=== PATIENT | female | born 1995 | race Caucasian/White ===

== ENCOUNTER 2020-03-05 11:09 | Outpatient (RCR) | payer OTHER, SELFPAY ==
[2020-03-05 13:34] LABS: Hematocrit 34.5 % (37.0-47.0)
[2020-03-05 13:45] LABS: Glucose 1 Hour PP 50gm Dose 142 mg/dL
[2020-03-05 14:27] LABS: HIV 1/2 Ab P24 Ag Result Negative (Negative)
[2020-03-06 07:56] LABS: Rapid Plasma Reagin Non-Reactive (NonReactive)
== END 2020-06-03 23:59 | disposition home or self-care (01) ==
LOC: ANHLAB 11:09
PROVIDERS: PCP Internal Medicine; Visit Provider Advanced Practice Midwife
DX: Z29.13 Encounter for prophylactic Rho(D) immune globulin (principal); Z11.4 Encounter for screening for human immunodeficiency virus [HIV]; O36.0990 Maternal care for other rhesus isoimmunization, unspecified trimester, not applicable or unspecified; Z3A.00 Weeks of gestation of pregnancy not specified
CPT/HCPCS: 36415; 82947; 85014; 85018; 85461; 86592; 86703; 90384; G0432; J2790

== ENCOUNTER 2020-03-07 12:10 | Outpatient (RCR) | payer OTHER, SELFPAY ==
[2020-03-07] MEDS: RHO(D) IMMUNE GLOBULIN 300 MCG SYRINGE IM (13:16)
== END 2020-06-05 23:59 | disposition home or self-care (01) ==
LOC: ANHLAB 12:10
PROVIDERS: PCP Internal Medicine; Visit Provider Obstetrics & Gynecology
DX: Z29.13 Encounter for prophylactic Rho(D) immune globulin (principal); O36.0130 Maternal care for anti-D [Rh] antibodies, third trimester, not applicable or unspecified; Z3A.00 Weeks of gestation of pregnancy not specified
CPT/HCPCS: 96372

== ENCOUNTER 2020-04-15 10:55 | Observation (INO) | payer OTHER, SELFPAY ==
[2020-04-15 11:18] VITALS: BP 118/68; PULSE 99
[2020-04-15 11:30] VITALS: BP 110/92; PULSE 103
[2020-04-15 11:45] VITALS: BP 119/75; PULSE 95
[2020-04-15 12:32] VITALS: BP 119/75; PULSE 90
--- NOTE | 2020-04-15 16:11 | PC.NURSE ---
1610--Dr. Thorpe at BS to see pt. at this time.
--- NOTE | 2020-04-15 16:37 | P.CONGI_ITS ---
Assessment and Plan Assessment and plan (1) : Code(s): Z34.90 - Encounter for supervision of normal , unspecified, unspecified trimester Status: Acute Assessment and Plan: Patient 36 weeks currently followed by Dr. Whitlock. plan for colonoscopy after she delivers the baby in several months. (2) Ulcerative colitis: Code(s): K51.90 - Ulcerative colitis, unspecified, without complications Status: Acute Assessment and Plan: Patient gives a history of ulcerative colitis. It is uncertain the extent of this disease. Currently on no medications. Plan is to start mesalamine. Continue this to the remainder of her . If symptoms worsen then prednisone may be a added later. We will ask patient to follow up in the office in 2 weeks. Ultimately for GI endoscopy after delivery of her baby. CBC and coags will be obtained today. (3) Rectal bleeding: Code(s): K62.5 - Hemorrhage of anus and rectum Status: Acute GI Consult Note Consult date/time: 04/15/20 16:37 HPI: Vanessa Casillas is a 25 year old female Seen in evaluation at the request Dr. Whitlock. Patient current we 36 weeks . She was found to have ulcerative colitis diagnosed at age 15 or 16. She state on medications until she was 20 when she stopped these because she felt good in became somewhat independent. Over the last 2 weeks of her she has noted loose stools with blood in her stools this appears admixed as the stools them sill cells appear bloody. Patient denies any abdominal pain. She typically has 1 or 2 stools a day but sometimes will have a few more over the last several weeks. She denies abdominal pain. Her appetite has remained stable. She has had no recent investigation does not currently follow with bed setter. Previous records or at [facility]. Review of Systems Review of Systems: All systems reviewed & are unremarkable except as noted in HPI and below Meds Home Medications and Allergies Allergies Allergy/AdvReac Type Severity Reaction Status Date / Time No Known Allergies Allergy Unverified 04/21/16 13:01 Vital Signs Vital Signs - 24 hr 04/15/20 11:18 04/15/20 11:30 04/15/20 11:45 Pulse Rate 99 103 H 95 Blood Pressure 118/68 110/92 H 119/75 Blood Pressure [Right Arm] 11/02/20 12:32 Pulse Rate 90 Blood Pressure Blood Pressure [Right Arm] 119/75 Exam Narrative: Exam Narrative: Physical exam reveals her to be alert. Vital signs stable. She is anicteric. Lungs are clear. Heart without murmur. Abdomen is reveals a gravid uterus nontender no no other masses evident.
[2020-04-15 16:57] LABS: Basophils Percent Auto 0.3 % (0.2-1.2); Eosinophils Absolute Auto 0.3 K/mm3 (0-0.3); Hemoglobin 11.4 g/dL (12.0-15.0); Immature Granulocyte Absolute 0.08 K/mm3 (0.00-0.031); Immature Granulocyte Percent A 0.6 % (0-0.5); Lymphocytes Percent Auto 20.4 % (18.3-44.2); Mean Corpuscular HGB Conc 32.6 g/dl (32-36); Mean Corpuscular Hemoglobin 30.4 pg (26-34); Mean Corpuscular Volume 93.3 fl (80-100); Mean Platelet Volume 9.6 fl (7.4-10.4); Monocytes Absolute Auto 0.9 K/mm3 (0.1-0.6); Monocytes Percent Auto 6.9 % (2.6-8.5); Neutrophils Absolute Auto 8.9 K/mm3 (1.3-6.7); Neutrophils Percent Auto 69.8 % (45.5-73.1); Platelet Count Result 370 k/mm3 (150-375); Red Blood Count 3.75 M/mm3 (4.2-5.4); Red Cell Distribution Width 12.4 % (11.5-14.5); White Blood Count 12.7 K/mm3 (4.5-10.0)
[2020-04-15 16:58] VITALS: BP 128/72; PULSE 91; RESP 16; TEMP 37.4
[2020-04-15 17:07] LABS: INR 0.9; Prothrombin Time 12.2 Seconds (11.1-14.7)
[2020-04-15] MEDS: MESALAMINE 400 MG DELAYED RELEASE CAPSULE 800 MG PO (17:21)
[2020-04-15 17:26] VITALS: BMI 26.7
--- NOTE | 2020-04-15 17:46 | OBADM ---
This patient, Vanessa Casillas, admitted to the OB room OB Post 115 for observation. Patient/family oriented to hospital policies and general routines including ID bracelet, bed and alarms, visiting hours, pain management, procedures, bathroom and other care routines, personal items, smoking policy, room service/diet, and visiting hours. Patient/Family are encouraged to report perceived risks to care and to ask questions if they do not understand what they are told or what they should do.
--- NOTE | 2020-05-16 19:55 | PM.IMHP ---
H&P: HPI History of Present Illness Date/Time: 05/16/20 19:55 Chief complaint: vomiting,diarrhea Narrative: Vanessa Casillas is a 25 year old female, , who presents for Evaluation in the hospital of acute gastric intestinal symptoms. She is known to have ulcerative colitis. She is . She is in the early 3rd trimester. [facility] Past Medical History Medical History Ulcerative colitis Social History Social History (Updated 05/14/20 @ 01:12 by Wendi Richardson PA-C) Smoking status: Never smoker Second hand tobacco smoke exposure: No Alcohol intake: never Substance use: current Substance use type: marijuana Gender identity (if verbalized by the patient): Female Spiritual care concerns: No Meds Home Medications and Allergies Home Medications Medication Instructions Recorded Confirmed Type prenat.vits,anurag,olq-wjqu-iwwhx 1 tablet PO DAILY 04/15/20 05/08/20 History balsalazide 750 mg PO BID 05/08/20 05/08/20 History Allergies Allergy/AdvReac Type Severity Reaction Status Date / Time No Known Allergies Allergy Unverified 04/21/16 13:01 Assessment and Plan Assessment and plan (1) Ulcerative colitis: Code(s): K51.90 - Ulcerative colitis, unspecified, without complications Status: Acute (2) : Code(s): Z34.90 - Encounter for supervision of normal , unspecified, unspecified trimester Status: Acute Assessment and Plan: Patient was admitted for short-stay and was seen by Gastroenterology. Please see their consultation note for details. She had reassuring status. Her is stable.
== END 2020-04-15 18:11 | disposition home or self-care (01) ==
PROVIDERS: Internal Medicine Gastroenterology; Admitting Provider Obstetrics & Gynecology; PCP Internal Medicine; Visit Provider Obstetrics & Gynecology
DX: O99.613 Diseases of the digestive system complicating pregnancy, third trimester (principal); K51.90 Ulcerative colitis, unspecified, without complications; Z3A.36 36 weeks gestation of pregnancy; K62.5 Hemorrhage of anus and rectum
CPT/HCPCS: 36415; 59025; 85025; 85610; A9270; G0378; G0379

== ENCOUNTER 2020-05-08 16:51 | Inpatient (IN) | payer OTHER, SELFPAY ==
[2020-05-08] VITALS (9 sets, daily range): BP systolic 111–131; BP diastolic 59–85; PULSE 81–101; TEMP 36.3–36.6; BMI 26.9
[2020-05-08] MEDS: DINOPROSTONE 10 MG VAG INSERT VAGINAL (17:31)
[2020-05-08 17:34] LABS: Basophils Percent Auto 0.3 % (0.2-1.2); Eosinophils Absolute Auto 0.2 K/mm3 (0-0.3); Eosinophils Percent Auto 1.3 % (0-4.4); Hematocrit 31.5 % (37.0-47.0); Hemoglobin 10.4 g/dL (12.0-15.0); Immature Granulocyte Absolute 0.06 K/mm3 (0.00-0.031); Immature Granulocyte Percent A 0.5 % (0-0.5); Lymphocytes Absolute Auto 2.46 K/mm3 (0.9-3.2); Lymphocytes Percent Auto 20.1 % (18.3-44.2); Mean Corpuscular Hemoglobin 30.5 pg (26-34); Mean Corpuscular Volume 92.4 fl (80-100); Mean Platelet Volume 10.4 fl (7.4-10.4); Monocytes Absolute Auto 0.8 K/mm3 (0.1-0.6); Monocytes Percent Auto 6.5 % (2.6-8.5); Neutrophils Absolute Auto 8.7 K/mm3 (1.3-6.7); Neutrophils Percent Auto 71.3 % (45.5-73.1); Platelet Count Result 336 k/mm3 (150-375); Red Blood Count 3.41 M/mm3 (4.2-5.4); White Blood Count 12.3 K/mm3 (4.5-10.0)
--- NOTE | 2020-05-08 17:48 | LDADM ---
This patient, Vanessa Casillas, was admitted to Labor/Delivery/Recovery 108 on 05/08/20 at 16:51. Plans for labor, pain management and were discussed with patient. Patient/family oriented to hospital policies and general routines including ID bracelet, bed and alarms, visiting hours, pain management, procedures, bathroom and other care routines, personal items, smoking policy, room service/diet and guest tray routines, security routines, and visiting hours. Patient/Family are encouraged to report perceived risks to care and to ask questions if they do not understand what they are told or what they should do. See OBIX for further documentation.
--- NOTE | 2020-05-08 20:10 | PHAR ---
Home medication identified in pharmacy. Balsalazide 750mg capsule
[2020-05-08 21:40] LABS: Amphetamine Screen Urine Negative (Negative); Barbiturate Screen Urine Negative (Negative); Benzodiazepines Screen Urine Negative (Negative); Cannabinoid Screen Urine Positive (Negative); Cocaine Screen Urine Negative (Negative); Methadone Screen Urine Negative (Negative); Opiate Screen Urine Negative (Negative); Phencyclidine Screen Urine Negative (Negative)
--- NOTE | 2020-05-08 22:29 | WPDANESEPP ---
Anes - Eval Pre Procedure Procedure: Labor epidural Date/Time: 05/08/20 22:29 Surgeon: Kamlesh Preop Diagnosis: Abd pain with contractions Pre Op Diagnosis: iol Patient Data Age: 25 Gender: F Height: 5 ft 7 in Weight: 78 kg Last Vital Signs Temp 97.4 F L 05/08/20 19:43 Pulse 87 05/08/20 19:30 BP 113/60 05/08/20 19:30 Allergies Allergy/AdvReac Type Severity Reaction Status Date / Time No Known Allergies Allergy Unverified 04/21/16 13:01 Home Medications Medication Instructions Recorded Confirmed Type prenat.vits,anurag,czc-yhdo-mtiib 1 tablet PO DAILY 04/15/20 05/08/20 History balsalazide 750 mg PO BID 05/08/20 05/08/20 History Laboratory Tests 05/08/20 05/08/20 05/08/20 17:27 17:27 17:27 WBC 12.3 K/mm3 H K/mm3 (4.5-10.0) RBC 3.41 M/mm3 L M/mm3 (4.2-5.4) Hgb 10.4 g/dL L g/dL (12.0-15.0) Hct 31.5 % L % (37.0-47.0) MCV 92.4 fl fl (80-100) MCH 30.5 pg pg (26-34) MCHC 33.0 g/dl g/dl (32-36) RDW 13.0 % % (11.5-14.5) Plt Count 336 k/mm3 k/mm3 (150-375) MPV 10.4 fl fl (7.4-10.4) Immature Gran % (Auto) 0.5 % % (0-0.5) Neut % (Auto) 71.3 % % (45.5-73.1) Lymph % (Auto) 20.1 % % (18.3-44.2) Wilcox % (Auto) 6.5 % % (2.6-8.5) Eos % (Auto) 1.3 % % (0-4.4) Baso % (Auto) 0.3 % % (0.2-1.2) Lymph # (Auto) 2.46 K/mm3 K/mm3 (0.9-3.2) Wilcox # (Auto) 0.8 K/mm3 H K/mm3 (0.1-0.6) Eos # (Auto) 0.2 K/mm3 K/mm3 (0-0.3) Baso # (Auto) 0.0 K/mm3 K/mm3 (0.0-0.1) Abs Immat Gran (auto) 0.06 K/mm3 H K/mm3 (0.00-0.031) Absolute Neuts (auto) 8.7 K/mm3 H K/mm3 (1.3-6.7) Absolute Nucleated RBC 0.0 K/mm3 K/mm3 (0.0-0.012) Nucleated RBC % 0.0 % % (0.0-0.2) Urine Opiates Screen Urine Methadone Screen Ur Barbiturates Screen Ur Phencyclidine Scrn Ur Amphetamine Screen U Benzodiazepines Scrn Urine Cocaine Screen U Cannabinoids Screen RPR Pending Blood Type O Negative Antibody Screen Positive Antibody Identification Passive Due to RH Imm Glob Antigen Identification TNP EDUARDO, IgG Interpret Not Performed EDUARDO, Poly Interpret Negative EDUARDO, Complement Interp Not Performed 05/08/20 21:18 WBC RBC Hgb Hct MCV MCH MCHC RDW Plt Count MPV Immature Gran % (Auto) Neut % (Auto) Lymph % (Auto) Wilcox % (Auto) Eos % (Auto) Baso % (Auto) Lymph # (Auto) Wilcox # (Auto) Eos # (Auto) Baso # (Auto) Abs Immat Gran (auto) Absolute Neuts (auto) Absolute Nucleated RBC Nucleated RBC % Urine Opiates Screen Negative (Negative) Urine Methadone Screen Negative (Negative) Ur Barbiturates Screen Negative (Negative) Ur Phencyclidine Scrn Negative (Negative) Ur Amphetamine Screen Negative (Negative) U Benzodiazepines Scrn Negative (Negative) Urine Cocaine Screen Negative (Negative) U Cannabinoids Screen Positive A (Negative) RPR Blood Type Antibody Screen Antibody Identification Antigen Identification EDUARDO, IgG Interpret EDUARDO, Poly Interpret EDUARDO, Complement Interp Patient hx anesthesia problems: none Family hx anesthesia problems: none PMFSH Past Medical History Medical History (Updated 05/08/20 @ 22:30 by Jovani Naranjo CRNA) Ulcerative colitis Social History Social History Smoking status: Never smoker Second hand tobacco smoke exposure: No Substance use: current
[2020-05-09] VITALS (198 sets, daily range): BP systolic 72–151; BP diastolic 43–96; PULSE 58–211; RESP 16; TEMP 36.5–37.2; O2SAT 86–100
[2020-05-09] MEDS: miSOPROStol 25 MCG TABLET VAGINAL ×2 (06:36→10:32)
--- NOTE | 2020-05-09 10:02 | WPDOBADMIT ---
Obstetrics - Admit Note Admission Note: record reviewed. No pertinent additions to the history and/or any subsequent changes in the physical findings that are not consistent with the expected course of the were found. MIL for hx of IUGR(resolved) but with recent ulcerative colitis flare, MFM rec delivery within 39th week. GSB negative Additions to the history and/or subsequent changes in the physical findings follow. None.
[2020-05-09] MEDS: LACTATED RINGERS 1,000 ML 125 ML IV CONT ×3 (14:34→21:52)
[2020-05-09] MEDS: fentaNYL CITRATE INJ (*CRX) 100 MCG/2 ML VIAL 50 MCG IV PUSH (14:34)
[2020-05-09] MEDS: OXYTOCIN 30 UNITS/NS 500 ML 30 UNITS/500 ML BAG 6 UNITS IV CONT (14:34)
--- NOTE | 2020-05-09 14:46 | PM.OBPNLAB ---
Pain Control Date/time seen: 05/09/20 14:46SVE 1-2/80/-1, AROM moderate amount of clear odorless fluid
[2020-05-10] VITALS (13 sets, daily range): BP systolic 109–137; BP diastolic 62–90; PULSE 76–114; RESP 16–18; TEMP 36.8–37.2; O2SAT 99
--- NOTE | 2020-05-10 00:09 | PM.OBPRVD ---
OB - Delivery Note Procedure Delivery date: 05/09/20 Procedure: Vaginal delivery events: Labor Induction Intrapartal events: None Induction method: AROM, per misoprostol protocol, per pitocin protocol and per cervidil protocol Delivery monitor: external FHT and internal uterine Route of delivery: Episiotomy description: None Laceration Description: Labial Delivery repair: vicryl Specimen: Yes Quantitative Blood Loss: 155 Anesthesia type: Epidural Disposition: other () Walker Baby Date of : 05/09/20 Time of : 23:43 Weeks of gestation at delivery: 39 Infant gender: Female Weight (pounds): 5 Weight (ounces): 14 presentation: vertex position: Left Occiput Anterior Placenta delivery description: Spontaneous cord vessel description: 3 Vessels and Clamped/Cut score one minute: 8 score five minutes: 9 Narrative: Compound presentation. Baby to warmer for further evaluation. Skin to skin in stable condition.
[2020-05-10] MEDS: OXYTOCIN 30 UNITS/NS 500 ML 30 UNITS/500 ML BAG 125 UNITS IV CONT (00:31)
[2020-05-10] MEDS: IBUPROFEN 600 MG TABLET PO ×4 (01:34→19:32)
[2020-05-10] MEDS: BENZOCAINE 20% AER SPR (*SP) 56 GM CAN 1 SPRAY TOPICAL (01:35)
[2020-05-10] MEDS: WITCH HAZEL 40 PADS 1 PAD TOPICAL (01:35)
--- NOTE | 2020-05-10 02:25 | OBPPTRN ---
Patient transferred to post room #282 via WC. Support person present. Oriented to unit, room, information board, rooming in, admission packet and security measures. Patient verbalizes understanding. Infant accompanied mother to room 282 per crib.
[2020-05-10 04:46] LABS: Hematocrit 31.7 % (37.0-47.0); Hemoglobin 10.4 g/dL (12.0-15.0)
[2020-05-10] MEDS: DOCUSATE SODIUM 100 MG CAPSULE PO (07:39)
[2020-05-10 09:00] LABS: Rapid Plasma Reagin Non-Reactive (NonReactive)
--- NOTE | 2020-05-10 09:05 | PM.OBPNVD ---
OB - PN: Subj Subjective Date/time seen: 05/10/20 09:05 Patient comments: no complaints, pain well controlled, incisional pain, tolerating diet and flatus present OB - PN: Obj Data Labs CBC & Chem 7: 05/10/20 03:47 Labs: Laboratory Results - last 24 hr 05/08/20 05/10/20 17:27 03:47 Hgb 10.4 L Hct 31.7 L RPR Non-reactive OB - PN A/P Plan day: 1 Plan: routine care Comments: No problems, routine care Time Spent With Patient Time: Total time spent is greater than 50% in coordination of care (as documented) at patient's floor/unit and/or counseling patient: Exam Const: General: comfortable, no acute distress and alert Resp: Effort & Inspection: normal respiratory effort Auscultation: no crackles, no rales and no rhonchi Cardio: Rate: regular rate Heart sounds: no click, no murmurs and no rubs GI: Inspection: non-distended GI Palp: No Tenderness to palpation present (GI) Auscultation: normal bowel sounds Other: Incision - CDI Extrem: General: normal to inspection, no pedal edema and no calf tenderness
--- NOTE | 2020-05-10 09:15 | WPDANLDPN2 ---
Anes-Prog Note L&D Date/Time: 05/10/20 09:15 Comfortable throughout: labor and delivery Neuraxial method: epidural Epidural/Spinal procedure site: clean & non-tender Neuro status: Neuro function grossly intact. Cardiovascular status: normal Respiratory status: normal Airway patency: baseline Mental status: baseline Post-Op hydration status: normal Vital Signs: Last Vital Signs Temp 37.2 C 05/10/20 07:00 Pulse 84 05/10/20 07:00 Resp 16 05/10/20 07:00 BP 122/90 05/10/20 07:00 Pulse Ox 100 05/09/20 23:26 Pain score (VAS): 3 I/O: Intake & Output 05/09/20 05/10/20 05/10/20 23:59 07:59 15:59 Intake Total 1000 500 Balance 1000 500 Post-procedural complaints: none Patient feedback: Patient satisfied with anesthetic care.
--- NOTE | 2020-05-10 12:10 | PCCCNOTE ---
Care Coordination. Patient referred to Care Coordination for positive UDS for THC. Pt. reports she only used to have more of an appetite. Pt. plans to return home with FOB. She reports having all necessary baby care items. She is setup with WIC, SNAP, and unemployment. She says her mother will be helping and coming by as well. Spoke with Unique Holcomb at [facility] Hotline and she took patient's situation as information only (Intake ID#[id number]). Pt. denies any needs for substance abuse or community resource information.
[2020-05-10] MEDS: ACETAMINOPHEN 325 MG TABLET 650 MG PO ×2 (13:28→19:33)
[2020-05-10] MEDS: TETANUS,DIPHTHERIA,AC PERTUSSIS ADULT (0.5 ML) BOOSTRIX IM (13:36)
[2020-05-10 17:04] LABS: SARS-CoV-2 RNA PCR Negative
--- NOTE | 2020-05-10 18:02 | PC.NURSE ---
1730 Pt and FOB advised of negative Covid result. Isolation discontinued.
[2020-05-11] MEDS: IBUPROFEN 600 MG TABLET PO ×3 (01:40→13:51)
[2020-05-11] MEDS: ACETAMINOPHEN 325 MG TABLET 650 MG PO ×3 (01:41→13:49)
[2020-05-11] MEDS: DOCUSATE SODIUM 100 MG CAPSULE PO (08:06)
--- NOTE | 2020-05-11 08:51 | PM.OBPNVD ---
OB - PN: Subj Subjective Date/time seen: 05/11/20 08:51 Patient comments: no complaints baby status: doing well and other (under bili lights) OB - PN: Obj Data Labs CBC & Chem 7: 05/10/20 03:47 Labs: Laboratory Results - last 24 hr 05/08/20 05/10/20 17:27 01:03 RPR Non-reactive SARS-CoV-2 RNA (RT-PCR) Negative OB - PN A/P Plan day: 2 Plan: routine care and discharge home Comments: no care bed Time Spent With Patient Time: Total time spent is greater than 50% in coordination of care (as documented) at patient's floor/unit and/or counseling patient: Review of Systems Review of Systems: All systems reviewed & are unremarkable except as noted in HPI and below Exam Const: General: cooperative and anxious Limitations: no limitations Psych: Attitude: cooperative
--- NOTE | 2020-05-11 08:53 | P.DS_ITS ---
DS: Admitting Diagnosis Admitting Diagnosis Admitting Diagnosis: iol OB - DS: Summary OB Procedures : None OB Procedures Intrapartum: Spontaneous Vag Delivery OB Procedures: : None Time Spent with Patient Time attestation: Total time spent providing and/or coordinating discharge services: DS: Data Data Completed and Pending Pending studies at discharge: Pending at discharge 05/09/20 23:50 Surgical [PTH] Routine Labs on day of discharge: Labs from last 24 hours 05/10/20 05/08/20 01:03 17:27 RPR Non-reactive SARS-CoV-2 RNA (RT-PCR) Negative Discharge Plan Discharge Attending physician on discharge: Mindy Whitlock Discharging Clinician: Poly Marino Patient Disposition: Home, Self-Care Activity: pelvic rest Diet: regular Patient Instructions: Antibiotic Form Stand Alone Forms: General Discharge Information Follow-up/Referrals: Poly Marino, CNM [Certified Nurse Sensitized Paper Tester] - 4 Weeks Discharge Medications: Continued prenat.vits,anurag,nze-eejk-ioszx Tablet 1 tablet PO DAILY RF: 0 balsalazide 750 mg capsule 750 mg PO BID RF: 0 Date of admission: 05/08/20 16:51 Primary Care Provider: Viktor Cheung Admitting Provider: Mindy Whitlock Attending physician on admission: Mindy Whitlock Condition: Stable
[2020-05-11] MEDS: CYCLOBENZAPRINE HCL 10 MG TABLET PO (11:12)
[2020-05-11 12:05] VITALS: BP 121/79; PULSE 75; RESP 16; TEMP 36.7; O2SAT 99
[2020-05-14 07:52] VITALS: BP 125/73; PULSE 83; RESP 20; TEMP 36.4; O2SAT 100
== END 2020-05-11 16:21 | disposition home or self-care (01) | DRG 560 ==
LOC: ANHLDR 17:01 → ANHOB2 05-10 04:22
PROVIDERS: Advanced Practice Midwife; Obstetrics & Gynecology; Admitting Provider Obstetrics & Gynecology; PCP Internal Medicine; Visit Provider Obstetrics & Gynecology
DX: O99.62 Diseases of the digestive system complicating childbirth (principal); Z20.828 Contact with and (suspected) exposure to other viral communicable diseases; K51.90 Ulcerative colitis, unspecified, without complications; O76 Abnormality in fetal heart rate and rhythm complicating labor and delivery; O70.0 First degree perineal laceration during delivery; Z3A.39 39 weeks gestation of pregnancy; Z37.0 Single live birth; Z23 Encounter for immunization
CPT/HCPCS: 36415; 80307; 85014; 85018; 85025; 86592; 86850; 86880; 86900; 86901; 86902; 87635; 88307; 90471; 90653; 90715; A9270; C9803; G0008; J2590; J2795; J3010; J7120; U0003

== ENCOUNTER 2020-05-14 00:31 | Emergency (ER) | payer OTHER, SELFPAY ==
[2020-05-14 00:37] VITALS: BP 138/93; PULSE 87; RESP 16; TEMP 36.6; O2SAT 99
--- NOTE | 2020-05-14 00:41 | ED.GENADULT ---
HPI - General Adult General Chief complaint: Headache Stated complaint: headache Time Seen by Provider: 05/14/20 00:35 Source: patient Mode of arrival: ambulatory Limitations: no limitations History of Present Illness HPI narrative: 25-year-old female that presents to the ER 4 days with complaint of headache since discharge on the . She has been treating herself at home with muscle relaxants and Tylenol with no relief. She is normotensive here and had no history of preeclampsia in her . She did have an epidural that required 2 attempts. She denies any other symptoms besides headache and neck pain that is worse when she stands up or sits up. No fever, no visual changes, no vomitin.g Onset (ago): day(s) Severity scale (1-10): 8 (when standing, less when laying flat) Quality: aching Pain Consistency: constant Associated symptoms: denies other symptoms Treatments prior to arrival: NSAID Related Data Home Medications Medication Instructions Recorded Confirmed prenat.vits,anurag,xfg-gmow-rtiip 1 tablet PO DAILY 04/15/20 05/08/20 balsalazide 750 mg PO BID 05/08/20 05/08/20 Allergies Allergy/AdvReac Type Severity Reaction Status Date / Time No Known Allergies Allergy Unverified 04/21/16 13:01 Review of Systems Review of Systems: All systems reviewed & are unremarkable except as noted in HPI and below PMFSH Past Medical History Medical History Ulcerative colitis Social History Social History (Updated 05/14/20 @ 01:12 by Wendi Richardson PA-C) Smoking status: Never smoker Second hand tobacco smoke exposure: No Alcohol intake: never Substance use: current Substance use type: marijuana Gender identity (if verbalized by the patient): Female Spiritual care concerns: No Exam Const: General: no acute distress and alert Orientation/consciousness: patient oriented x3 HENMT: Head: normal to inspection Eyes: Conjunctivae: conjunctivae normal Pupils: Equal, round and reactive pupils present Neck: Neck: no lymphadenopathy Resp: Effort & Inspection: normal respiratory effort Auscultation: clear to auscultation bilaterally Cardio: Rate: regular rate Rhythm: regular rhythm Back/Spine/Pelvis: Cervical Spine: cervical ROM normal Skin: General skin exam: normal color Neuro: General: moves all extremities Extrem: General: normal to inspection Course Course Emergency Course: Spoke with Dr. Cordero from OB anesthesia, agrees that patient most likely needs a blood patch. In mean time will hydrate and treat with Fioricet. He will be over to assess. Blood patch completed at 0130, per anesthesia pt needs to remain flat on back for a minimum of 1 hr, ideally 2 hrs. pt did get some immediate relief. 45 min post procedure pt is feeling much better. Medical Decision Making Differential Diagnosis Differential Diagnosis: post-epidural headache vs hypertension vs. sinus congestion Medical Records Medical records reviewed: Yes I reviewed the patient's medical records. Medical records narrative: No history of pre-e. Epidural X 2 attempts. Discharge Plan Discharge Clinical Impression: Spinal headache complicating labor and delivery, delivered, Patient Disposition: Home, Self-Care Condition: Improved Instructions: Antibiotic Form, Epidural Blood Patch (DC) Additional Instructions: No heavy lifting, he can lift nothing heavier than your baby for the next several days. Continue to take Tylenol or ibuprofen as needed for headache. Follow-up with your OB as scheduled, sooner should your headache return. Prescriptions: No Action prenat.vits,anurag,jxl-pkpz-kyzky Tablet 1 tablet PO DAILY RF: 0 balsalazide 750 mg capsule 750 mg PO BID RF: 0 Follow-up/Referrals: Wendi Richardson PA-C [Emergency Midlevel Provider] - Mindy Whitlock MD [Physician] - Viktor Cheung, [Primary Care
[2020-05-14 00:50] VITALS: BP 154/75; PULSE 80; RESP 23; TEMP 37.2; O2SAT 98
[2020-05-14] MEDS: SODIUM CHLORIDE 0.9% IV 1,000 ML 999 ML IV CONT (01:34)
--- NOTE | 2020-05-14 01:43 | P.PCNANE_ITS ---
Anes - Epidural Blood Patch PN Date/Time: 05/14/20 01:43 Consent: I have discussed with the patient/family/POA, the rationale of a lumbar epidural autologous blood patch for the treatment of post-dural puncture headache (spinal headache), including associated potential risks, benefits, comp lications and side effects. I have also discussed more conservative treatment options such as intravenous hydration, caffeine and non-prescription analgesics. The patient/family/POA, understand(s) and wish(es) to proceed with epidural autologous blood patch as treatment for the patient's post-dural puncture headache. Time-Out: A pre-procedural Time-Out was completed immediately before starting the procedure and confirmed: Patient Identification, Site, Procedure, Patient Position and the Availability of Requisite Equipment. Clinical Indications: PDPH Epidural Insertion Note Patient position: sitting Skin prep: chlorhexidine and sterile drape Needle: 18 gauge Tuohy-Schliff Technique: loss of resistance Skin anesthesia: lidocaine 1% Observations: tolerated well Complications: none
--- NOTE | 2020-05-14 02:40 | PC.NURSE ---
RN assisted anesthesia with blood patch. Pt tolerated well. See MD notes.
[2020-05-14 03:05] VITALS: BP 156/98; PULSE 89; RESP 16; TEMP 36.6; O2SAT 100
--- NOTE | 2020-05-14 03:18 | PC.NURSE ---
Pt assisted out of bed and noted no headache. Pt ambulated well without return of symptoms. VSS on d/c
== END 2020-05-14 03:19 | disposition home or self-care (01) ==
PROVIDERS: Emergency Provider Emergency Medicine; PCP Internal Medicine
DX: O89.4 Spinal and epidural anesthesia-induced headache during the puerperium (principal)
CPT/HCPCS: 62273; 96360; 99283; A9270; J7030

== ENCOUNTER 2024-03-12 09:35 | Outpatient (RCR) | payer BC, SELFPAY ==
[2024-03-12] VITALS (11 sets, daily range): BP systolic 107–127; BP diastolic 48–65; PULSE 82–94; RESP 14–18; TEMP 36.4–37.2; O2SAT 98–100
[2024-03-12 10:03] LABS: Basophils Absolute Auto 0.1 K/mm3 (0.0-0.1); Basophils Percent Auto 0.4 % (0.2-1.2); Eosinophils Absolute Auto 0.2 K/mm3 (0-0.3); Eosinophils Percent Auto 1.3 % (0-4.4); Hematocrit 24.3 % (37.0-47.0); Immature Granulocyte Absolute 0.07 K/mm3 (0.00-0.031); Immature Granulocyte Percent A 0.4 % (0-0.5); Lymphocytes Absolute Auto 2.62 K/mm3 (0.9-3.2); Lymphocytes Percent Auto 16.6 % (18.3-44.2); Mean Corpuscular HGB Conc 26.7 g/dl (32-36); Mean Corpuscular Hemoglobin 18.7 pg (26-34); Mean Corpuscular Volume 69.8 fl (80-100); Mean Platelet Volume 9.3 fl (7.4-10.4); Monocytes Absolute Auto 0.7 K/mm3 (0.1-0.6); Monocytes Percent Auto 4.6 % (2.6-8.5); Neutrophils Absolute Auto 12.1 K/mm3 (1.3-6.7); Neutrophils Percent Auto 76.7 % (45.5-73.1); Nucleated Red Blood Cells Perc 0.4 % (0.0-0.2); Platelet Count Result 655 k/mm3 (150-375); Red Blood Count 3.48 M/mm3 (4.2-5.4); Red Cell Distribution Width 19.1 % (11.5-14.5); White Blood Count 15.8 K/mm3 (4.5-10.0)
[2024-03-12 10:13] LABS: Hemoglobin 6.5 g/dL (12.0-15.0)
--- NOTE | 2024-03-12 10:20 | PC.NURSE ---
Lab results reported to Dr. Whitlock
[2024-03-12 10:27] LABS: Anisocytosis 1+; Hypochromasia 2+; Microcytosis 1+ (NORMAL); Platelet Estimate Increased (Adequate); Schistocytes None Seen; Target Cells 1+
== END 2024-06-10 23:59 | disposition home or self-care (01) ==
LOC: ANHOBOP 09:35
PROVIDERS: Visit Provider Advanced Practice Midwife
DX: O99.019 Anemia complicating pregnancy, unspecified trimester (principal)
CPT/HCPCS: 36415; 36430; 85025; 86850; 86900; 86901; 86923; P9016

== ENCOUNTER 2024-04-18 11:51 | Outpatient (RCR) | payer BC, MEDICAID, SELFPAY ==
[2024-04-19] MEDS: RHO(D) IMMUNE GLOBULIN 300 MCG/2 ML SYRINGE IM (10:14)
== END 2024-07-17 23:59 | disposition home or self-care (01) ==
LOC: ANHLAB 11:51
PROVIDERS: Visit Provider Advanced Practice Midwife
DX: Z29.13 Encounter for prophylactic Rho(D) immune globulin (principal); O36.0130 Maternal care for anti-D [Rh] antibodies, third trimester, not applicable or unspecified
CPT/HCPCS: 36415; 85461; 86850; 86900; 86901; 90384; J2790

== ENCOUNTER 2024-06-02 12:38 | Outpatient (CLI) | payer MEDICAID, SELFPAY ==
[2024-06-02 12:55] LABS: Basophils Absolute Auto 0.1 K/mm3 (0.0-0.1); Basophils Percent Auto 0.5 % (0.2-1.2); Eosinophils Absolute Auto 0.3 K/mm3 (0-0.3); Eosinophils Percent Auto 2.8 % (0-4.4); Hematocrit 30.2 % (37.0-47.0); Hemoglobin 9.1 g/dL (12.0-15.0); Immature Granulocyte Absolute 0.05 K/mm3 (0.00-0.031); Immature Granulocyte Percent A 0.4 % (0-0.5); Lymphocytes Absolute Auto 2.73 K/mm3 (0.9-3.2); Lymphocytes Percent Auto 23.6 % (18.3-44.2); Mean Corpuscular HGB Conc 30.1 g/dl (32-36); Mean Corpuscular Hemoglobin 24.9 pg (26-34); Mean Corpuscular Volume 82.5 fl (80-100); Mean Platelet Volume 10.1 fl (7.4-10.4); Monocytes Absolute Auto 0.7 K/mm3 (0.1-0.6); Monocytes Percent Auto 6.3 % (2.6-8.5); Neutrophils Absolute Auto 7.7 K/mm3 (1.3-6.7); Neutrophils Percent Auto 66.4 % (45.5-73.1); Platelet Count Result 425 k/mm3 (150-375); Red Blood Count 3.66 M/mm3 (4.2-5.4); Red Cell Distribution Width 26.4 % (11.5-14.5); White Blood Count 11.6 K/mm3 (4.5-10.0)
[2024-06-02 13:23] LABS: Acanthocytes 1+; Anisocytosis 2+; Burr Cells 1+; Hypochromasia 1+; Ovalocytes 1+; Platelet Estimate Increased (Adequate); Poikilocytosis 1+; Schistocytes None Seen; Stomatocytes 1+; Target Cells 1+; Tear Drop Cells 1+
== END 2024-06-02 12:39 | disposition home or self-care (01) ==
LOC: ANHLAB 12:42
PROVIDERS: Visit Provider Advanced Practice Midwife
DX: O99.019 Anemia complicating pregnancy, unspecified trimester (principal); Z3A.00 Weeks of gestation of pregnancy not specified
CPT/HCPCS: 36415; 85025

== ENCOUNTER 2024-06-08 14:00 | Inpatient (IN) | payer MEDICAID, SELFPAY ==
[2024-06-08] VITALS (60 sets, daily range): BP systolic 94–167; BP diastolic 49–124; PULSE 63–252; RESP 18; TEMP 36.4–36.8; O2SAT 94–100; BMI 30.2
--- NOTE | 2024-06-08 14:37 | LDADM ---
This patient, Vanessa Casillas, was admitted to Labor/Delivery/Recovery 105 on 06/08/24 at 14:01. Plans for labor, pain management and were discussed with patient. Patient/family oriented to hospital policies and general routines including ID bracelet, bed and alarms, visiting hours, pain management, procedures, bathroom and other care routines, personal items, smoking policy, room service/diet and guest tray routines, security routines, and visiting hours. Patient/Family are encouraged to report perceived risks to care and to ask questions if they do not understand what they are told or what they should do. See OBIX for further documentation.
[2024-06-08 14:46] LABS: Basophils Absolute Auto 0.1 K/mm3 (0.0-0.1); Basophils Percent Auto 0.5 % (0.2-1.2); Eosinophils Absolute Auto 0.3 K/mm3 (0-0.3); Hematocrit 29.9 % (37.0-47.0); Hemoglobin 9.1 g/dL (12.0-15.0); Immature Granulocyte Percent A 0.8 % (0-0.5); Lymphocytes Absolute Auto 2.47 K/mm3 (0.9-3.2); Lymphocytes Percent Auto 19.6 % (18.3-44.2); Mean Corpuscular HGB Conc 30.4 g/dl (32-36); Mean Corpuscular Hemoglobin 25.2 pg (26-34); Mean Corpuscular Volume 82.8 fl (80-100); Mean Platelet Volume 10.4 fl (7.4-10.4); Monocytes Absolute Auto 0.6 K/mm3 (0.1-0.6); Monocytes Percent Auto 4.4 % (2.6-8.5); Neutrophils Absolute Auto 9.2 K/mm3 (1.3-6.7); Neutrophils Percent Auto 72.7 % (45.5-73.1); Platelet Count Result 437 k/mm3 (150-375); Red Blood Count 3.61 M/mm3 (4.2-5.4); Red Cell Distribution Width 25.1 % (11.5-14.5); White Blood Count 12.6 K/mm3 (4.5-10.0)
[2024-06-08 15:02] LABS: Anisocytosis 1+; Hypochromasia 1+; Platelet Estimate Increased (Adequate); Schistocytes None Seen
[2024-06-08] MEDS: LACTATED RINGERS 500 ML 999 ML IV CONT (15:13)
[2024-06-08 15:22] LABS: Rapid Plasma Reagin Non-Reactive (NonReactive)
--- NOTE | 2024-06-08 15:49 | WPDOBADMIT ---
Obstetrics - Admit Note Admission Note: record reviewed. No pertinent additions to the history and/or any subsequent changes in the physical findings that are not consistent with the expected course of the were found. Additions to the history and/or subsequent changes in the physical findings follow. Admit in labor, SVE /-1 AROM clear, odorless fluid, anticipate vaginal delivery
[2024-06-08] MEDS: ONDANSETRON INJ 4 MG/2 ML VIAL IV PUSH (16:27)
--- NOTE | 2024-06-08 16:31 | P.PNAN_ITS ---
Anes - Initial Pre Proc Eval Procedure: labor epidural Date/Time: 06/08/24 16:31 Surgeon: Hugh Whitlock MD Pre Op Diagnosis: labor pain Pre Op Diagnosis: Contractions Patient Data Age: 29 Gender: F Height: Weight: Last Vital Signs Temp 36.4 C 06/08/24 15:41 Pulse 87 06/08/24 16:27 BP 100/89 06/08/24 16:29 Pulse Ox 100 06/08/24 16:27 Allergies Allergy/AdvReac Type Severity Reaction Status Date / Time No Known Allergies Allergy Verified 05/17/24 16:43 Home Medications ?Medication ?Instructions ?Recorded ?Confirmed ?Type prenat.vits,anurag,[id number] 1 tablet PO DAILY 04/15/20 05/17/24 History Laboratory Tests 06/08/24 14:39 WBC 12.6 H K/mm3 (4.5-10.0) RBC 3.61 L M/mm3 (4.2-5.4) Hgb 9.1 L g/dL (12.0-15.0) Hct 29.9 L % (37.0-47.0) MCV 82.8 fl (80-100) MCH 25.2 L pg (26-34) MCHC 30.4 L g/dl (32-36) RDW 25.1 H % (11.5-14.5) Plt Count 437 H k/mm3 (150-375) MPV 10.4 fl (7.4-10.4) Immature Gran % (Auto) 0.8 H % (0-0.5) Neut % (Auto) 72.7 % (45.5-73.1) Lymph % (Auto) 19.6 % (18.3-44.2) Sch[place]icher % (Auto) 4.4 % (2.6-8.5) Eos % (Auto) 2.0 % (0-4.4) Baso % (Auto) 0.5 % (0.2-1.2) Lymph # (Auto) 2.47 K/mm3 (0.9-3.2) Schleicher # (Auto) 0.6 K/mm3 (0.1-0.6) Eos # (Auto) 0.3 K/mm3 (0-0.3) Baso # (Auto) 0.1 K/mm3 (0.0-0.1) Abs Immat Gran (auto) 0.10 H K/mm3 (0.00-0.031) Absolute Neuts (auto) 9.2 H K/mm3 (1.3-6.7) Absolute Nucleated RBC 0.000 K/mm3 (0.0-0.012) Nucleated RBC % 0.0 % (0.0-0.2) Platelet Estimate Increased (Adequate) Hypochromasia 1+ Anisocytosis 1+ Schistocytes None seen RPR Non-reactive (NonReactive) HIV 1&2 Ab/P24 Ag 4thGn Pending Blood Type O Negative Antibody Screen Positive Antibody Identification Passive Due to RH Imm Glob Antigen Identification Not Reportable EDUARDO, IgG Interpret Neg EDUARDO, Poly Interpret Not Performed EDUARDO, Complement Interp Negative Patient hx anesthesia problems: none Family hx anesthesia problems: none Results Review: All pre-operative results and documents have been reviewed as part of the pre- operative evaluation. [facility] Past Medical History Medical History Ulcerative colitis Social History Social History (Updated 05/14/20 @ 01:12 by Wendi Richardson PA-C) Smoking status: Never smoker Second hand tobacco smoke exposure: No Alcohol intake: never Substance use: current Substance use type: marijuana Gender identity (if verbalized by the patient): Female Sexual Orientation (if Verbalized by the Patient): Straight or Heterosexual Spiritual care concerns: No Anes - Eval Final PreProcedure Day of Procedure 06/08/24 16:31 Patient weight: obese ASA classification: III Anesthetic plan: proceed Anesthesia type and monitoring: regional epidural and standard monitoring Results Review: All pre-operative results and documents have been reviewed as part of the pre- operative evaluation. Informed Consent: The patient's anesthetic plan and its attendant risks and benefits were discussed with the patient/family/POA. Questions were solicited and answers provided to the satisfaction of the patient/family/POA.
[2024-06-08 16:35] LABS: HIV 1/2 Ab P24 Ag Result Negative (Negative)
[2024-06-08 16:59] LABS: Amphetamine Screen Urine Negative (Negative); Barbiturate Screen Urine Negative (Negative); Benzodiazepines Screen Urine Negative (Negative); Cannabinoid Screen Urine Positive (Negative); Cocaine Screen Urine Negative (Negative); Methadone Screen Urine Negative (Negative); Opiate Screen Urine Negative (Negative); Phencyclidine Screen Urine Negative (Negative)
[2024-06-08] MEDS: OXYTOCIN 30 UNITS/NS 500 ML 30 UNITS/500 ML BAG IV CONT (17:33)
[2024-06-08] MEDS: LACTATED RINGERS 1,000 ML 125 ML IV CONT (17:34)
--- NOTE | 2024-06-08 18:36 | PM.OBPRVD ---
OB - Vaginal Delivery Note Procedure Delivery date: 06/08/24 Delivery augmentation: Rupture of Membranes and Pitocin Delivery monitor: External FHT and External Uterine Route of delivery: Laceration Description: Perineal - 1st Degree Delivery repair: vicryl Specimen: No Quantitative Blood Loss (ml): 115 Anesthesia type: Epidural Disposition: Floor Complications: No immediate complications [place] Baby Date of : 06/08/24 Time of : 18:22 Gestational Age by Date: 40 Infant gender: Male presentation: vertex position: Left Occiput Anterior Placenta delivery description: Spontaneous Cord Vessel Description: 3 Vessels and Clamped/Cut
[2024-06-08] MEDS: OXYTOCIN 30 UNITS/NS 500 ML 30 UNITS/500 ML BAG 125 UNITS IV CONT (18:56)
[2024-06-08] MEDS: WITCH HAZEL 40 PADS 1 PAD TOPICAL (20:37)
[2024-06-08] MEDS: BENZOCAINE 20% AER SPR (*SP) 56 GM CAN 1 SPRAY TOPICAL (20:37)
--- NOTE | 2024-06-08 20:44 | OBPPTRN ---
Patient transferred to post room #283 via wheelchair. Support person present. Oriented to unit, room, information board, rooming in, admission packet and security measures. Patient verbalizes understanding.
[2024-06-08] MEDS: IBUPROFEN SUSPENSION 200 MG/10 ML UDC 600 MG PO (21:37)
[2024-06-08] MEDS: IRON SUCROSE COMPLEX 200 MG in SODIUM CHLORIDE 0.9% IV 100 ML 220 MG IVPB (23:52)
[2024-06-09] MEDS: ACETAMINOPHEN ELIXIR 325 MG/10.15 ML UDC 650 MG PO ×2 (01:00→16:35)
[2024-06-09 05:44] LABS: Hemoglobin 9.1 g/dL (12.0-15.0)
[2024-06-09] MEDS: IBUPROFEN SUSPENSION 200 MG/10 ML UDC 600 MG PO ×3 (05:45→22:05)
--- NOTE | 2024-06-09 07:29 | P.PNOB_ITS ---
OB - PN: Subj Subjective Date/time seen: 06/09/24 07:29 Interval history: pp day 1 no complaints OB - PN: Obj Data Labs 06/09/24 05:37 Labs: Laboratory Results - last 24 hr 06/08/24 06/08/24 06/09/24 14:39 16:38 05:37 WBC 12.6 H RBC 3.61 L Hgb 9.1 L 9.1 L Hct 29.9 L 30.0 L MCV 82.8 MCH 25.2 L MCHC 30.4 L RDW 25.1 H Plt Count 437 H MPV 10.4 Immature Gran % (Auto) 0.8 H Neut % (Auto) 72.7 Lymph % (Auto) 19.6 [place] % (Auto) 4.4 Eos % (Auto) 2.0 Baso % (Auto) 0.5 Lymph # (Auto) 2.47 [place] # (Auto) 0.6 Eos # (Auto) 0.3 Baso # (Auto) 0.1 Abs Immat Gran (auto) 0.10 H Absolute Neuts (auto) 9.2 H Absolute Nucleated RBC 0.000 Nucleated RBC % 0.0 Platelet Estimate Increased Hypochromasia 1+ Anisocytosis 1+ Schistocytes None seen Urine Opiates Screen Negative Urine Methadone Screen Negative Ur Barbiturates Screen Negative Ur Phencyclidine Scrn Negative Ur Amphetamine Screen Negative U Benzodiazepines Scrn Negative Urine Cocaine Screen Negative U Cannabinoids Screen Positive A RPR Non-reactive HIV 1&2 Ab/P24 Ag 4thGn Negative Blood Type O Negative Antibody Screen Positive Antibody Identification Passive Due to RH Imm Glob Antigen Identification Not Reportable EDUARDO, IgG Interpret Neg EDUARDO, Poly Interpret Not Performed EDUARDO, Complement Interp Negative OB - PN A/P Plan day: 1 Plan: routine care Time Spent With Patient Time: Total time spent is greater than 50% in coordination of care (as documented) at patient's floor/unit and/or counseling patient: Review of Systems 2 Review of Systems: All systems reviewed & are unremarkable except as noted in HPI and below Exam 2 Const: General: cooperative and healthy appearing Resp: Effort & Inspection: normal respiratory effort Cardio: Rate: regular rate Skin: General skin exam: normal color Neuro: General: patient oriented x3
[2024-06-09 08:30] VITALS: BP 113/75; PULSE 83; RESP 16; TEMP 36.9; O2SAT 98
[2024-06-09] MEDS: POLYSACCHARIDE IRON COMPLEX 150 MG CAPSULE PO ×2 (08:31→16:35)
--- NOTE | 2024-06-09 10:00 | PC.NURSE ---
Patient requested information regarding and it's role in reducing risk of SIDS. Discussed the more frequent feeding and awake time during the night. We reviewed that the pediatric recommendation is to not use THC while , but that the benefit of breastmilk outweighs the risks. Mother is also a heavy nicotine user and worries about baby's jitteriness. Reviewed signs of nicotine withdraw as well and normal development and behavior. Mother doesn't feel like is right for her, she just wanted info. Encouraged her to call out if she decides she wants to breastfeed. Reported to primary RN.
[2024-06-09 11:50] VITALS: BP 110/56; PULSE 75; RESP 16; TEMP 36.8; O2SAT 100
--- NOTE | 2024-06-09 15:48 | PCCCNOTE ---
Addendum entered by SHEILA Clark 06/16/24 08:20: Faxed baby's drug screen results to [facility] Office [phone]. Original Note: Recvd CC consult due to THC use and questionable living conditions. Met with pt. who has support people at bedside, including pt's mother, sister, and HANK Bae. Pt. reports has baby supplies for baby boy, and states will be living with HANK Bae, and their daughter. Pt. denies any [facility] involvement, and admits to THC and Vape/Nicotine use during . Baby boy is having tremors and RN believes this could be nicotine withdrawals. Report made to [facility] online, #[id number]. Homeless shelters, resources, and SDOH resources provided to pt. Pt. reports in process of establishing with [facility], and already has [facility]. RAS Tavarez aware of visit.
[2024-06-09] MEDS: DOCUSATE SODIUM 100 MG CAPSULE PO (16:35)
--- NOTE | 2024-06-09 17:45 | PC.NURSE ---
Received call from Cam with [facility] #[phone], she was calling from the [facility] Hotline, a report was made by Elicia in Care Coordination, Cam was wanting more medical information, RN called Dr. Stanley, Fish And Wildlife Warden on for [employer] and was ok with giving her the phone number so Cam could call her directly. *Copy of note placed in baby chart*
[2024-06-09 22:20] VITALS: BP 125/81; PULSE 75; RESP 18; TEMP 36.7; O2SAT 99
--- NOTE | 2024-06-09 23:31 | PC.NURSE ---
2220- Pt asked this RN if she can go to the gas station. Reiterated to pt that she cannot leave the hospital prior to being discharged. Pt stated she just wants to go outside and get fresh air.
--- NOTE | 2024-06-10 07:11 | P.PNOB_ITS ---
OB - PN: Subj Subjective Date/time seen: 06/10/24 07:11 Interval history: pp day 1 no complaints Patient comments: no complaints, pain well controlled and tolerating diet OB - PN: Obj Data Labs 06/09/24 05:37 OB - PN A/P Plan day: 2 Plan: routine care and discharge home Time Spent With Patient Time: Total time spent is greater than 50% in coordination of care (as documented) at patient's floor/unit and/or counseling patient: Exam 2 Const: General: comfortable and no acute distress Resp: Effort & Inspection: normal respiratory effort Auscultation: no rales, no rhonchi and no wheezes Cardio: Rate: regular rate Heart sounds: no click, no murmurs and no rubs GI: GI Palp: Yes Soft to palpation and No Tenderness to palpation present (GI) Auscultation: normal bowel sounds Extrem: General: normal to inspection, no pedal edema and no calf tenderness
--- NOTE | 2024-06-10 07:12 | PM.OBDSVD ---
DS: Admitting Diagnosis Discharge Date June 10, 2024 Admitting Diagnosis term DS: Discharge Diagnosis Discharge Diagnosis (1) Term delivered: Code(s): O80 - Encounter for full-term uncomplicated delivery Status: Acute OB - DS: Summary OB Procedures : None OB Procedures Intrapartum: Spontaneous Vag Delivery OB Procedures: : None Peripartum Data Laceration Description: Perineal - 1st Degree Time Spent with Patient Time attestation: Total time spent providing and/or coordinating discharge services: Discharge Plan Discharge Discharging Clinician: Hugh Whitlock Activity: pelvic rest Diet: regular Patient Language: [place] Discharge Medications: Continued prenat.vits,anurag,[id number]-bcfty Tablet 1 tablet PO DAILY Date of admission: 06/08/24 14:01 Primary Care Provider: PHYSICIAN,CORRECTIONS IDENTIFICATION TECHNICIAN Admitting Provider: Hugh Whitlock Attending physician on admission: Hugh Whitlock Condition: Stable
[2024-06-10 08:00] VITALS: BP 123/84; PULSE 86; RESP 16; TEMP 37; O2SAT 99
--- NOTE | 2024-06-10 08:56 | PCCCNOTE ---
Per previous wound care coordinator Elicia, DCF[facility] is not taking a report/investigation on mother/baby. Mom is clear to discharge with baby when medically stable at this time.
[2024-06-10] MEDS: DOCUSATE SODIUM 100 MG CAPSULE PO (11:45)
[2024-06-10] MEDS: POLYSACCHARIDE IRON COMPLEX 150 MG CAPSULE PO (11:45)
[2024-06-12 08:24] VITALS: BP 111/82; PULSE 93; RESP 18; TEMP 37.1; O2SAT 100
== END 2024-06-10 13:35 | disposition home or self-care (01) | DRG 560 ==
LOC: ANHLDR 14:24 → ANHOB2 20:55
PROVIDERS: Advanced Practice Midwife; Admitting Provider Obstetrics & Gynecology; Visit Provider Obstetrics & Gynecology
DX: O62.3 Precipitate labor (principal); Z37.0 Single live birth; Z3A.40 40 weeks gestation of pregnancy; O70.0 First degree perineal laceration during delivery
CPT/HCPCS: 36415; 80307; 85014; 85018; 85025; 86592; 86703; 86850; 86880; 86900; 86901; 86902; A9270; G0432; J1756; J2405; J2590; J2795; J7120